=== PATIENT | male | born 1955 | race Caucasian/White ===

== ENCOUNTER 2017-08-09 11:28 | Inpatient (IN) | payer OTHER ==
[~2017-08-09 11:28] MED LIST: ROCURONIUM 50 MG INJ
[2017-08-09] MEDS ORDERED: DEXAMETHASONE 4 MG/ML 1 ML INJ (13:56)
[2017-08-09] MEDS ORDERED: ONDANSETRON 4 MG INJ (13:56)
[2017-08-09] MEDS ORDERED: PROPOFOL 20 ML (13:56)
[2017-08-09] MEDS ORDERED: MIDAZOLAM 1 MG/ML 2 ML INJ (13:56)
[2017-08-09] MEDS ORDERED: CEFAZOLIN 1 GM INJ (13:56)
[2017-08-09] MEDS ORDERED: NEOSTIGMINE 3 MG/3 ML SYRINGE (13:56)
[2017-08-09] MEDS ORDERED: GLYCOPYRROLATE 0.4 MG INJ (13:56)
[2017-08-09] MEDS ORDERED: ROCURONIUM 50 MG INJ (13:56)
[2017-08-09] MEDS ORDERED: NALOXONE (0.4 MG/ML) INJ IV (14:30)
[2017-08-09] MEDS ORDERED: NACL 0.9% 3 ML SYG IV (14:30)
[2017-08-09] MEDS ORDERED: hydrALAzine 20 MG INJ IV (15:30)
[2017-08-09] MEDS ORDERED: HYDROmorphONE (0.2 MG/ML) 10ML SYG IV (15:30)
[2017-08-09] MEDS ORDERED: TRIMETHOBENZAMIDE 100 MG/ML VIAL IM (15:30)
[2017-08-09] MEDS ORDERED: MEPERIDINE 25 MG INJ IV (15:30)
[2017-08-09] MEDS ORDERED: FENTAnyl 50 MCG/ML VIAL IV (15:30)
[2017-08-09] MEDS ORDERED: DIPHENHYDRAMINE 50 MG INJ IV (15:30)
[2017-08-09] MEDS ORDERED: OXYCODONE/ACETAMINOPHEN (5/325) TAB PO ×2 (15:30)
[2017-08-09] MEDS ORDERED: IPRATROPIUM (NEB) 0.5 MG/2.5 ML AMP HHN (15:30)
[2017-08-09] MEDS ORDERED: ALBUTEROL 0.083% (NEB) 2.5 MG/3 ML AMP HHN (15:30)
[2017-08-09] MEDS ORDERED: MIDAZOLAM 1 MG/ML 2 ML INJ IV (15:30)
[2017-08-09] MEDS ORDERED: ONDANSETRON 4 MG INJ IV (15:30)
[2017-08-09] MEDS ORDERED: EPHEDrine SULFATE 50 MG/5 ML SYG IV (15:30)
[2017-08-09] MEDS: HEPARIN 1000 UNITS/ML 10 ML INJ (15:35)
[2017-08-09] MEDS: CEFAZOLIN 1 GM INJ (15:35)
[2017-08-09] MEDS: GELATIN SIZE 100 SPONGE ×3 (15:36→16:28)
[2017-08-09] MEDS: THROMBIN 5000 UNIT VIAL ×4 (15:36→16:28)
[2017-08-09] MEDS ORDERED: PHENYLephrine (100 MCG/ML) 5ML SYG (16:17)
[2017-08-09] MEDS ORDERED: SUGAMMADEX SODIUM 200 MG/2 ML VIAL IV (17:16)
[2017-08-09] MEDS: LABETALOL HCL 20MG INJ IV (17:51)
[2017-08-09] MEDS: CEFAZOLIN 1 GM/50 ML (PMX) 50 ML IVPB (17:52)
[2017-08-09] MEDS: HYDROmorphONE (0.2 MG/ML) 10ML SYG IV ×2 (17:59→18:12)
[2017-08-09] MEDS: FENTAnyl 50 MCG/ML VIAL IV ×2 (18:00→18:12)
[2017-08-09] MEDS: HYDROmorphONE 0.2 MG/ML PCA IV (18:05)
[2017-08-09 18:11] LABS: ADD UMIC YES; UR ASCORBIC ACID NEGATIVE (NEGATIVE); UR BACTERIA FEW /HPF (NONE SEEN); UR BILIRUBIN (Dip) NEGATIVE (NEGATIVE); UR BLOOD (Dip) 2+ mg/dL (NEGATIVE); UR CLARITY SLIGHTLY CLOUDY (CLEAR); UR COLOR YELLOW (YELLOW); UR GLUCOSE (Dip) NEGATIVE (NEGATIVE); UR KETONES (Dip) NEGATIVE (NEGATIVE); UR LEUKOCYTE ESTERASE (Dip) NEGATIVE Leu/ul (NEGATIVE); UR MUCUS MODERATE /HPF (NONE SEEN); UR NITRITE (Dip) NEGATIVE (NEGATIVE); UR RBC 62 /HPF (0-5); UR SPECIFIC GRAVITY (Dip) 1.015 (1.003-1.030); UR TOTAL PROTEIN (Dip) 2+ mg/dl (NEGATIVE); UR UROBILINOGEN (Dip) NEGATIVE (NEGATIVE); UR WBC 8 /HPF (0-5)
[2017-08-10] MEDS: CEFAZOLIN 1 GM/50 ML (PMX) 50 ML IVPB ×3 (00:57→12:46)
[2017-08-10] MEDS: HYDROmorphONE 0.2 MG/ML PCA IV ×2 (01:40→14:31)
[2017-08-10 06:57] LABS: HEMATOCRIT 37.7 % (42.0-52.0); HEMOGLOBIN 12.5 g/dl (14.0-18.0)
[2017-08-10 07:38] LABS: ANION GAP 14 (8-16); BLOOD UREA NITROGEN 15 mg/dl (7-20); CALCIUM 8.4 mg/dl (8.4-10.2); CARBON DIOXIDE 27 mmol/L (21-31); CHLORIDE 107 mmol/L (97-110); CREATININE 0.85 mg/dl (0.61-1.24); GLUCOSE 171 mg/dl (70-220); POTASSIUM 4.3 mmol/L (3.5-5.1); SODIUM 144 mmol/L (135-144)
[2017-08-10] MEDS: BENAZEPRIL 20 MG TAB PO (12:00)
[2017-08-10] MEDS: ATENOLOL 25 MG TAB PO (12:00)
[2017-08-10 12:03] LABS: HEMOGLOBIN A1C 6.9 % (0-5.9)
[2017-08-10] MEDS ORDERED: DEXTROSE 50% 50 ML SYRINGE IV ×2 (14:00)
[2017-08-10] MEDS ORDERED: GLUCOSE GEL 15 GRAM TUBE BUCCAL (14:00)
[2017-08-10] MEDS ORDERED: GLUCAGON 1 MG INJ IM (14:00)
[2017-08-10] MEDS ORDERED: GLUCOSE GEL 15 GRAM TUBE PO ×2 (14:00)
[2017-08-10] MEDS: metFORMIN 500 MG TAB PO (17:17)
[2017-08-10] MEDS: ONDANSETRON 4 MG INJ IV (17:17)
[2017-08-10] MEDS: INSULIN ASPART [NOVOLOG] 3 ML PEN SC ×2 (17:55→21:00)
[2017-08-10] MEDS: TERAZOSIN 5 MG CAP PO (21:58)
[2017-08-11] MEDS: ACCU-CHEK XX (02:00)
[2017-08-11 07:49] LABS: ADD MAN DIFF? NO
[2017-08-11 07:53] LABS: BASOPHILS % 0.3 % (0.0-2.0); EOSINOPHILS % 0.1 % (0.0-7.0); HEMATOCRIT 34.4 % (42.0-52.0); HEMOGLOBIN 11.2 g/dl (14.0-18.0); LYMPHOCYTES # 1.4 10^3/ul (0.8-2.9); LYMPHOCYTES % 14.2 % (15.0-51.0); MEAN CORPUSCULAR HEMOGLOBIN 28.4 pg (29.0-33.0); MEAN CORPUSCULAR HGB CONC 32.6 g/dl (32.0-37.0); MEAN CORPUSCULAR VOLUME 87.3 fl (82.0-101.0); MEAN PLATELET VOLUME 10.6 fl (7.4-10.4); MONOCYTE # 1.2 10^3/ul (0.3-0.9); MONOCYTES % 11.8 % (0.0-11.0); NEUTROPHIL # 7.3 10^3/ul (1.6-7.5); NEUTROPHILS % 73.2 % (39.0-77.0); PLATELET COUNT 219 10^3/UL (140-415); RED BLOOD COUNT 3.94 10^6/ul (4.70-6.10); RED CELL DISTRIBUTION WIDTH 15.2 % (11.5-14.5)
[2017-08-11 07:53] LABS: WHITE BLOOD COUNT 9.9 10^3/ul (4.8-10.8)
[2017-08-11] MEDS: INSULIN ASPART [NOVOLOG] 3 ML PEN SC ×4 (07:55→20:34)
[2017-08-11 08:24] LABS: ANION GAP 15 (8-16); BLOOD UREA NITROGEN 21 mg/dl (7-20); CALCIUM 8.6 mg/dl (8.4-10.2); CARBON DIOXIDE 28 mmol/L (21-31); CHLORIDE 105 mmol/L (97-110); CREATININE 0.84 mg/dl (0.61-1.24); GLUCOSE 122 mg/dl (70-220); POTASSIUM 3.8 mmol/L (3.5-5.1); SODIUM 144 mmol/L (135-144)
[2017-08-11] MEDS: ATENOLOL 25 MG TAB PO (08:43)
[2017-08-11] MEDS: metFORMIN 500 MG TAB PO ×2 (08:43→17:42)
[2017-08-11] MEDS: AMLODIPINE 5 MG TAB PO (08:44)
[2017-08-11] MEDS: BENAZEPRIL 20 MG TAB PO (08:44)
[2017-08-11] MEDS ORDERED: glipiZIDE (XL) 2.5 MG TAB PO (09:00)
[2017-08-11] MEDS: HYDROmorphONE 0.2 MG/ML PCA IV (10:39)
[2017-08-11] MEDS: DOCUSATE SODIUM 100 MG CAP PO (20:31)
[2017-08-11] MEDS: TERAZOSIN 5 MG CAP PO (20:32)
[2017-08-11] MEDS: HYDROCODONE/APAP (5/325) TAB PO (20:33)
[2017-08-12] MEDS: ACCU-CHEK XX (02:00)
[2017-08-12 07:34] LABS: ADD MAN DIFF? NO
[2017-08-12 07:45] LABS: BASOPHIL # 0.1 10^3/ul (0.0-0.1); BASOPHILS % 0.6 % (0.0-2.0); EOSINOPHILS # 0.1 10^3/ul (0.0-0.5); EOSINOPHILS % 1.1 % (0.0-7.0); HEMATOCRIT 35.9 % (42.0-52.0); HEMOGLOBIN 11.7 g/dl (14.0-18.0); LYMPHOCYTES # 1.6 10^3/ul (0.8-2.9); LYMPHOCYTES % 18.3 % (15.0-51.0); MEAN CORPUSCULAR HEMOGLOBIN 28.3 pg (29.0-33.0); MEAN CORPUSCULAR HGB CONC 32.6 g/dl (32.0-37.0); MEAN CORPUSCULAR VOLUME 86.9 fl (82.0-101.0); MEAN PLATELET VOLUME 10.1 fl (7.4-10.4); MONOCYTE # 1.1 10^3/ul (0.3-0.9); MONOCYTES % 12.9 % (0.0-11.0); NEUTROPHIL # 5.8 10^3/ul (1.6-7.5); NEUTROPHILS % 66.5 % (39.0-77.0); PLATELET COUNT 216 10^3/UL (140-415); RED BLOOD COUNT 4.13 10^6/ul (4.70-6.10); RED CELL DISTRIBUTION WIDTH 14.7 % (11.5-14.5)
[2017-08-12 07:45] LABS: WHITE BLOOD COUNT 8.8 10^3/ul (4.8-10.8)
[2017-08-12 08:01] LABS: ANION GAP 14 (8-16); BLOOD UREA NITROGEN 17 mg/dl (7-20); CALCIUM 8.9 mg/dl (8.4-10.2); CARBON DIOXIDE 31 mmol/L (21-31); CHLORIDE 102 mmol/L (97-110); CREATININE 0.77 mg/dl (0.61-1.24); GLUCOSE 110 mg/dl (70-220); POTASSIUM 3.8 mmol/L (3.5-5.1); SODIUM 143 mmol/L (135-144)
[2017-08-12] MEDS: metFORMIN 500 MG TAB PO ×2 (08:17→17:50)
[2017-08-12] MEDS: DOCUSATE SODIUM 100 MG CAP PO ×2 (08:17→20:32)
[2017-08-12] MEDS: AMLODIPINE 5 MG TAB PO (08:17)
[2017-08-12] MEDS: BENAZEPRIL 20 MG TAB PO (08:17)
[2017-08-12] MEDS: ATENOLOL 25 MG TAB PO (08:18)
[2017-08-12] MEDS: INSULIN ASPART [NOVOLOG] 3 ML PEN SC ×4 (08:33→20:33)
[2017-08-12] MEDS: HYDROmorphONE 0.2 MG/ML PCA IV (10:59)
[2017-08-12] MEDS ORDERED: BISACODYL (EC) 5 MG TAB PO (16:00)
[2017-08-12] MEDS: ZOLPIDEM 5 MG TAB PO (20:32)
[2017-08-12] MEDS: HYDROCODONE/APAP (5/325) TAB PO (20:32)
[2017-08-12] MEDS: TERAZOSIN 5 MG CAP PO (20:33)
[2017-08-13] MEDS: ACCU-CHEK XX (02:00)
[2017-08-13] MEDS: HYDROCODONE/APAP (5/325) TAB PO ×4 (03:48→18:08)
[2017-08-13] MEDS: INSULIN ASPART [NOVOLOG] 3 ML PEN SC ×4 (07:55→21:00)
[2017-08-13] MEDS: DOCUSATE SODIUM 100 MG CAP PO ×2 (08:18→21:03)
[2017-08-13] MEDS: metFORMIN 500 MG TAB PO ×2 (08:18→17:15)
[2017-08-13] MEDS: ATENOLOL 25 MG TAB PO (08:21)
[2017-08-13] MEDS: BENAZEPRIL 20 MG TAB PO (08:22)
[2017-08-13] MEDS: AMLODIPINE 5 MG TAB PO (08:22)
[2017-08-13 08:32] LABS: ADD MAN DIFF? NO
[2017-08-13 08:40] LABS: WHITE BLOOD COUNT 7.7 10^3/ul (4.8-10.8)
[2017-08-13 08:40] LABS: BASOPHILS % 0.5 % (0.0-2.0); EOSINOPHILS # 0.2 10^3/ul (0.0-0.5); EOSINOPHILS % 2.3 % (0.0-7.0); HEMATOCRIT 36.1 % (42.0-52.0); HEMOGLOBIN 11.9 g/dl (14.0-18.0); LYMPHOCYTES # 1.3 10^3/ul (0.8-2.9); LYMPHOCYTES % 16.2 % (15.0-51.0); MEAN CORPUSCULAR HEMOGLOBIN 28.1 pg (29.0-33.0); MEAN CORPUSCULAR VOLUME 85.3 fl (82.0-101.0); MEAN PLATELET VOLUME 11.5 fl (7.4-10.4); MONOCYTE # 0.9 10^3/ul (0.3-0.9); NEUTROPHIL # 5.3 10^3/ul (1.6-7.5); NEUTROPHILS % 68.6 % (39.0-77.0); POSITIVE DIFF @See below; RED BLOOD COUNT 4.23 10^6/ul (4.70-6.10); RED CELL DISTRIBUTION WIDTH 14.3 % (11.5-14.5)
[2017-08-13 08:53] LABS: PLATELET COUNT 137 10^3/UL (140-415)
[2017-08-13 09:02] LABS: ANION GAP 14 (8-16); BLOOD UREA NITROGEN 14 mg/dl (7-20); CALCIUM 8.8 mg/dl (8.4-10.2); CARBON DIOXIDE 28 mmol/L (21-31); CHLORIDE 103 mmol/L (97-110); CREATININE 0.67 mg/dl (0.61-1.24); GLUCOSE 118 mg/dl (70-220); POTASSIUM 3.9 mmol/L (3.5-5.1); SODIUM 141 mmol/L (135-144)
[2017-08-13] MEDS: ZOLPIDEM 5 MG TAB PO (21:03)
[2017-08-13] MEDS: TERAZOSIN 5 MG CAP PO (21:04)
[2017-08-14] MEDS: HYDROCODONE/APAP (5/325) TAB PO ×5 (01:14→22:37)
[2017-08-14] MEDS: ACCU-CHEK XX (03:00)
[2017-08-14] MEDS: INSULIN ASPART [NOVOLOG] 3 ML PEN SC ×4 (07:46→20:35)
[2017-08-14 08:05] LABS: ADD MAN DIFF? NO
[2017-08-14 08:08] LABS: BASOPHILS % 0.5 % (0.0-2.0); EOSINOPHILS # 0.2 10^3/ul (0.0-0.5); EOSINOPHILS % 2.5 % (0.0-7.0); HEMATOCRIT 35.4 % (42.0-52.0); LYMPHOCYTES # 1.5 10^3/ul (0.8-2.9); LYMPHOCYTES % 17.7 % (15.0-51.0); MEAN CORPUSCULAR HEMOGLOBIN 28.8 pg (29.0-33.0); MEAN CORPUSCULAR HGB CONC 33.9 g/dl (32.0-37.0); MEAN CORPUSCULAR VOLUME 84.9 fl (82.0-101.0); MONOCYTE # 1.1 10^3/ul (0.3-0.9); NEUTROPHIL # 5.5 10^3/ul (1.6-7.5); NEUTROPHILS % 65.8 % (39.0-77.0); PLATELET COUNT 262 10^3/UL (140-415); RED BLOOD COUNT 4.17 10^6/ul (4.70-6.10); RED CELL DISTRIBUTION WIDTH 14.3 % (11.5-14.5)
[2017-08-14 08:08] LABS: WHITE BLOOD COUNT 8.4 10^3/ul (4.8-10.8)
[2017-08-14 08:24] LABS: ANION GAP 15 (8-16); BLOOD UREA NITROGEN 15 mg/dl (7-20); CALCIUM 9.1 mg/dl (8.4-10.2); CARBON DIOXIDE 32 mmol/L (21-31); CHLORIDE 101 mmol/L (97-110); CREATININE 0.89 mg/dl (0.61-1.24); GLUCOSE 113 mg/dl (70-220); POTASSIUM 3.9 mmol/L (3.5-5.1); SODIUM 144 mmol/L (135-144)
[2017-08-14] MEDS: metFORMIN 500 MG TAB PO ×2 (08:53→17:27)
[2017-08-14] MEDS: DOCUSATE SODIUM 100 MG CAP PO ×2 (08:53→20:34)
[2017-08-14] MEDS: AMLODIPINE 5 MG TAB PO (08:54)
[2017-08-14] MEDS: ATENOLOL 25 MG TAB PO (08:54)
[2017-08-14] MEDS: BENAZEPRIL 20 MG TAB PO (08:57)
[2017-08-14] MEDS: TERAZOSIN 5 MG CAP PO (20:34)
[2017-08-14] MEDS: ZOLPIDEM 5 MG TAB PO (20:34)
[2017-08-15] MEDS: ACCU-CHEK XX (02:00)
[2017-08-15] MEDS: INSULIN ASPART [NOVOLOG] 3 ML PEN SC ×4 (07:55→21:00)
[2017-08-15] MEDS: HYDROCODONE/APAP (5/325) TAB PO ×5 (07:59→22:19)
[2017-08-15] MEDS: metFORMIN 500 MG TAB PO ×2 (07:59→17:04)
[2017-08-15] MEDS: ATENOLOL 25 MG TAB PO (08:52)
[2017-08-15] MEDS: BENAZEPRIL 20 MG TAB PO (08:52)
[2017-08-15] MEDS: AMLODIPINE 5 MG TAB PO (08:52)
[2017-08-15] MEDS: DOCUSATE SODIUM 100 MG CAP PO ×2 (08:53→21:07)
[2017-08-15] MEDS: TERAZOSIN 5 MG CAP PO (21:07)
[2017-08-16] MEDS: ACCU-CHEK XX (01:38)
[2017-08-16 06:05] LABS: ADD MAN DIFF? NO
[2017-08-16 06:10] LABS: WHITE BLOOD COUNT 8.9 10^3/ul (4.8-10.8)
[2017-08-16 06:10] LABS: BASOPHILS % 0.5 % (0.0-2.0); EOSINOPHILS # 0.3 10^3/ul (0.0-0.5); EOSINOPHILS % 3.3 % (0.0-7.0); HEMATOCRIT 36.3 % (42.0-52.0); HEMOGLOBIN 12.2 g/dl (14.0-18.0); LYMPHOCYTES # 1.5 10^3/ul (0.8-2.9); MEAN CORPUSCULAR HEMOGLOBIN 28.2 pg (29.0-33.0); MEAN CORPUSCULAR HGB CONC 33.6 g/dl (32.0-37.0); MEAN PLATELET VOLUME 9.7 fl (7.4-10.4); MONOCYTE # 1.1 10^3/ul (0.3-0.9); MONOCYTES % 12.6 % (0.0-11.0); NEUTROPHIL # 5.9 10^3/ul (1.6-7.5); NEUTROPHILS % 66.1 % (39.0-77.0); PLATELET COUNT 282 10^3/UL (140-415); RED BLOOD COUNT 4.32 10^6/ul (4.70-6.10)
[2017-08-16] MEDS: HYDROCODONE/APAP (5/325) TAB PO ×3 (06:41→16:04)
[2017-08-16 06:51] LABS: ANION GAP 15 (8-16); BLOOD UREA NITROGEN 16 mg/dl (7-20); CALCIUM 8.9 mg/dl (8.4-10.2); CARBON DIOXIDE 29 mmol/L (21-31); CHLORIDE 104 mmol/L (97-110); CREATININE 0.81 mg/dl (0.61-1.24); GLUCOSE 103 mg/dl (70-220); POTASSIUM 3.6 mmol/L (3.5-5.1); SODIUM 144 mmol/L (135-144)
[2017-08-16] MEDS: ATENOLOL 25 MG TAB PO (08:03)
[2017-08-16] MEDS: AMLODIPINE 5 MG TAB PO (08:03)
[2017-08-16] MEDS: BENAZEPRIL 20 MG TAB PO (08:04)
[2017-08-16] MEDS: DOCUSATE SODIUM 100 MG CAP PO (08:04)
[2017-08-16] MEDS: metFORMIN 500 MG TAB PO (08:05)
[2017-08-16] MEDS: INSULIN ASPART [NOVOLOG] 3 ML PEN SC ×2 (08:10→11:42)
== END 2017-08-16 17:05 | disposition home or self-care (01) | DRG 460 ==
LOC: REC 11:28 → MS2 08-15 22:45 → TEL 21:00
PROVIDERS: Neurological Surgery
PROC: 0SG30A0 Fusion of Lumbosacral Joint with Interbody Fusion Device, Anterior Approach, Anterior Column, Open Approach (ICD-10-PCS; principal; 2017-08-09 13:30)
PROC: 0SG10A0 Fusion of 2 or more Lumbar Vertebral Joints with Interbody Fusion Device, Anterior Approach, Anterior Column, Open Approach (ICD-10-PCS; 2017-08-09 13:30)
PROC: 0SB20ZZ Excision of Lumbar Vertebral Disc, Open Approach (ICD-10-PCS; 2017-08-09 13:30)
PROC: 0SP304Z Removal of Internal Fixation Device from Lumbosacral Joint, Open Approach (ICD-10-PCS; 2017-08-09 13:30)
DX: T84.028A Dislocation of other internal joint prosthesis, initial encounter (principal); E11.8 Type 2 diabetes mellitus with unspecified complications; M51.17 Intervertebral disc disorders with radiculopathy, lumbosacral region; I10 Essential (primary) hypertension; Y83.8 Other surgical procedures as the cause of abnormal reaction of the patient, or of later complication, without mention of misadventure at the time of the procedure; Y92.89 Other specified places as the place of occurrence of the external cause; E11.9 Type 2 diabetes mellitus without complications; N40.0 Benign prostatic hyperplasia without lower urinary tract symptoms; M21.379 Foot drop, unspecified foot; R10.9 Unspecified abdominal pain; R11.0 Nausea
CPT/HCPCS: 72100; 72131; 80048; 81001; 82962; 83036; 85014; 85018; 85025; 86850; 86900; 86901; 86920; 87086; 88304; 97110; 97116; 97161; 97530

== ENCOUNTER 2017-12-02 13:23 | Inpatient (IN) | payer OTHER ==
[~2017-12-02 13:23] MED LIST changes: +CA CHLORIDE 10% 10 ML SYRINGE; +CEFAZOLIN 1 GM INJ; +DEXAMETHASONE 4 MG/ML 1 ML INJ; +ONDANSETRON 4 MG INJ; -ROCURONIUM 50 MG INJ
[2017-12-02 14:28] LABS: ADD MAN DIFF? NO
[2017-12-02 14:29] LABS: WHITE BLOOD COUNT 7.7 10^3/ul (4.8-10.8)
[2017-12-02 14:29] LABS: BASOPHIL # 0.1 10^3/ul (0.0-0.1); BASOPHILS % 0.6 % (0.0-2.0); EOSINOPHILS # 0.1 10^3/ul (0.0-0.5); EOSINOPHILS % 1.7 % (0.0-7.0); HEMATOCRIT 42.9 % (42.0-52.0); HEMOGLOBIN 13.7 g/dl (14.0-18.0); LYMPHOCYTES # 1.4 10^3/ul (0.8-2.9); LYMPHOCYTES % 17.7 % (15.0-51.0); MEAN CORPUSCULAR HEMOGLOBIN 26.6 pg (29.0-33.0); MEAN CORPUSCULAR HGB CONC 31.9 g/dl (32.0-37.0); MEAN CORPUSCULAR VOLUME 83.1 fl (82.0-101.0); MEAN PLATELET VOLUME 9.8 fl (7.4-10.4); MONOCYTE # 0.7 10^3/ul (0.3-0.9); MONOCYTES % 9.4 % (0.0-11.0); NEUTROPHIL # 5.4 10^3/ul (1.6-7.5); NEUTROPHILS % 70.2 % (39.0-77.0); PLATELET COUNT 298 10^3/UL (140-415); RED BLOOD COUNT 5.16 10^6/ul (4.70-6.10)
[2017-12-02 14:52] LABS: ALANINE AMINOTRANSFERASE 37 IU/L (13-69); ALBUMIN 4.2 g/dl (3.3-4.9); ALBUMIN/GLOBULIN RATIO 1.68; ALKALINE PHOSPHATASE 115 IU/L (42-121); ANION GAP 16 (8-16); ASPARTATE AMINO TRANSFERASE 23 IU/L (15-46); BILIRUBIN,INDIRECT 0.4 mg/dl (0-1.1); BILIRUBIN,TOTAL 0.4 mg/dl (0.2-1.3); BLOOD UREA NITROGEN 11 mg/dl (7-20); CARBON DIOXIDE 26 mmol/L (21-31); CHLORIDE 104 mmol/L (97-110); CREATININE 0.72 mg/dl (0.61-1.24); GLUCOSE 125 mg/dl (70-220); POTASSIUM 3.8 mmol/L (3.5-5.1); SODIUM 142 mmol/L (135-144); TOTAL PROTEIN 6.7 g/dl (6.1-8.1)
[2017-12-02 14:53] LABS: INR 1.07; PT RATIO 1.1
[2017-12-02 14:54] LABS: PARTIAL THROMBOPLASTIN TIME 26.6 Sec (25.0-35.0)
[2017-12-02] MEDS ORDERED: MIDAZOLAM 1 MG/ML 2 ML INJ (18:10)
[2017-12-02] MEDS ORDERED: PROPOFOL 20 ML (18:10)
[2017-12-02] MEDS ORDERED: METOCLOPRAMIDE 10 MG INJ (18:11)
[2017-12-02] MEDS ORDERED: SUCCINYLCHOLINE CHLORIDE 100 MG/5 ML SYG IV (18:11)
[2017-12-02] MEDS ORDERED: ROCURONIUM 50 MG INJ (18:11)
[2017-12-02] MEDS ORDERED: LIDOCAINE 2% (SDV) 5 ML INJ (18:11)
[2017-12-02] MEDS ORDERED: ROPIVACAINE 0.5 % 30 ML VIAL (19:11)
[2017-12-02] MEDS ORDERED: POLYMYXIN/BACITRACIN 1L IRRIG (19:12)
[2017-12-02] MEDS ORDERED: NACL 0.9% 3 ML SYG IV (19:30)
[2017-12-02] MEDS ORDERED: NALOXONE (0.4 MG/ML) INJ IV (19:30)
[2017-12-02] MEDS: CEFAZOLIN 1 GM/50 ML (PMX) 50 ML IVPB (19:30)
[2017-12-02] MEDS: DOCUSATE SODIUM 100 MG CAP PO (20:00)
[2017-12-02] MEDS ORDERED: FENTAnyl 50 MCG/ML VIAL (20:22)
[2017-12-02] MEDS ORDERED: LABETALOL HCL 20MG INJ (20:29)
[2017-12-02] MEDS ORDERED: hydrALAzine 20 MG INJ (20:45)
[2017-12-02] MEDS: HEPARIN 1000 UNITS/ML 10 ML INJ (21:05)
[2017-12-02] MEDS: GELATIN SIZE 100 SPONGE (21:05)
[2017-12-02] MEDS: CEFAZOLIN 1 GM INJ (21:05)
[2017-12-02] MEDS: THROMBIN 5000 UNIT VIAL (21:06)
[2017-12-02] MEDS ORDERED: THROMBIN 5000 UNIT VIAL (21:21)
[2017-12-02] MEDS ORDERED: ACETAMINOPHEN 1000MG/100ML IV 100 ML (23:07)
[2017-12-02] MEDS ORDERED: SUGAMMADEX SODIUM 200 MG/2 ML VIAL IV ×2 (23:09)
[2017-12-02] MEDS ORDERED: PROVENTIL HFA 6.7GM INHALER (23:09)
[2017-12-02] MEDS ORDERED: HYDROmorphONE 2 MG/ML SYG (23:18)
[2017-12-03] MEDS: HYDROmorphONE 1 MG/ML SYG IV (01:07)
[2017-12-03] MEDS: CEFAZOLIN 1 GM/50 ML (PMX) 50 ML IVPB ×3 (01:07→11:43)
[2017-12-03] MEDS: HYDROCODONE/APAP (5/325) TAB PO ×2 (02:35→20:59)
[2017-12-03] MEDS: HYDROmorphONE 0.2 MG/ML PCA IV ×2 (02:59→13:39)
[2017-12-03 05:43] LABS: HEMATOCRIT 41.3 % (42.0-52.0); HEMOGLOBIN 12.9 g/dl (14.0-18.0)
[2017-12-03 06:02] LABS: ANION GAP 17 (8-16); BLOOD UREA NITROGEN 14 mg/dl (7-20); CALCIUM 8.8 mg/dl (8.4-10.2); CARBON DIOXIDE 22 mmol/L (21-31); CHLORIDE 108 mmol/L (97-110); CREATININE 0.81 mg/dl (0.61-1.24); GLUCOSE 260 mg/dl (70-220); POTASSIUM 4.5 mmol/L (3.5-5.1); SODIUM 142 mmol/L (135-144)
[2017-12-03] MEDS ORDERED: GLUCOSE GEL 15 GRAM TUBE PO ×2 (07:00)
[2017-12-03] MEDS ORDERED: GLUCAGON 1 MG INJ IM (07:00)
[2017-12-03] MEDS ORDERED: DEXTROSE 50% 50 ML SYRINGE IV ×2 (07:00)
[2017-12-03] MEDS ORDERED: GLUCOSE GEL 15 GRAM TUBE BUCCAL (07:00)
[2017-12-03] MEDS: INSULIN ASPART [NOVOLOG] 3 ML PEN SC ×4 (08:07→21:00)
[2017-12-03] MEDS ORDERED: DICLOFENAC (EC) 75 MG TAB PO (09:30)
[2017-12-03] MEDS: DOCUSATE SODIUM 100 MG CAP PO ×2 (09:59→21:00)
[2017-12-03] MEDS: ATENOLOL 25 MG TAB PO (10:12)
[2017-12-03] MEDS: INSULIN GLARGINE [LANtus] 3 ML PEN SC (11:41)
[2017-12-03] MEDS: metFORMIN 500 MG TAB PO (17:31)
[2017-12-03] MEDS: TERAZOSIN 5 MG CAP PO (21:00)
[2017-12-04] MEDS: ACCUCHECK AT 2AM (Patients on SS coverage) XX (02:00)
[2017-12-04 05:48] LABS: ADD MAN DIFF? NO
[2017-12-04 05:54] LABS: WHITE BLOOD COUNT 12.3 10^3/ul (4.8-10.8)
[2017-12-04 05:54] LABS: BASOPHILS % 0.2 % (0.0-2.0); EOSINOPHILS % 0.2 % (0.0-7.0); HEMATOCRIT 34.9 % (42.0-52.0); HEMOGLOBIN 10.9 g/dl (14.0-18.0); LYMPHOCYTES # 1.2 10^3/ul (0.8-2.9); MEAN CORPUSCULAR HEMOGLOBIN 26.9 pg (29.0-33.0); MEAN CORPUSCULAR HGB CONC 31.2 g/dl (32.0-37.0); MEAN CORPUSCULAR VOLUME 86.2 fl (82.0-101.0); MEAN PLATELET VOLUME 10.3 fl (7.4-10.4); MONOCYTE # 1.4 10^3/ul (0.3-0.9); NEUTROPHIL # 9.6 10^3/ul (1.6-7.5); NEUTROPHILS % 78.3 % (39.0-77.0); PLATELET COUNT 220 10^3/UL (140-415); RED BLOOD COUNT 4.05 10^6/ul (4.70-6.10); RED CELL DISTRIBUTION WIDTH 14.6 % (11.5-14.5)
[2017-12-04 06:33] LABS: ANION GAP 15 (8-16); BLOOD UREA NITROGEN 32 mg/dl (7-20); CALCIUM 8.4 mg/dl (8.4-10.2); CARBON DIOXIDE 25 mmol/L (21-31); CHLORIDE 105 mmol/L (97-110); CREATININE 1.06 mg/dl (0.61-1.24); GLUCOSE 160 mg/dl (70-220); MAGNESIUM 1.9 mg/dl (1.7-2.5); PHOSPHORUS 4.1 mg/dl (2.5-4.9); POTASSIUM 4.5 mmol/L (3.5-5.1); SODIUM 140 mmol/L (135-144)
[2017-12-04] MEDS: HYDROmorphONE 0.2 MG/ML PCA IV (08:33)
[2017-12-04] MEDS: INSULIN GLARGINE [LANtus] 3 ML PEN SC (08:33)
[2017-12-04] MEDS: INSULIN ASPART [NOVOLOG] 3 ML PEN SC ×4 (08:34→21:00)
[2017-12-04] MEDS: BENAZEPRIL 20 MG TAB PO (08:42)
[2017-12-04] MEDS: metFORMIN 500 MG TAB PO ×2 (08:42→17:18)
[2017-12-04] MEDS: DOCUSATE SODIUM 100 MG CAP PO ×2 (08:42→21:14)
[2017-12-04] MEDS: ATENOLOL 25 MG TAB PO (08:42)
[2017-12-04] MEDS: ONDANSETRON 4 MG INJ IV (15:34)
[2017-12-04] MEDS: TERAZOSIN 5 MG CAP PO (21:14)
[2017-12-05] MEDS: ACCUCHECK AT 2AM (Patients on SS coverage) XX (02:00)
[2017-12-05] MEDS: HYDROmorphONE 0.2 MG/ML PCA IV ×2 (02:56→14:12)
[2017-12-05 04:49] LABS: ADD MAN DIFF? NO
[2017-12-05 04:53] LABS: BASOPHILS % 0.2 % (0.0-2.0); EOSINOPHILS # 0.1 10^3/ul (0.0-0.5); EOSINOPHILS % 0.7 % (0.0-7.0); HEMATOCRIT 31.2 % (42.0-52.0); HEMOGLOBIN 9.8 g/dl (14.0-18.0); LYMPHOCYTES # 1.3 10^3/ul (0.8-2.9); LYMPHOCYTES % 14.1 % (15.0-51.0); MEAN CORPUSCULAR HEMOGLOBIN 26.8 pg (29.0-33.0); MEAN CORPUSCULAR HGB CONC 31.4 g/dl (32.0-37.0); MEAN CORPUSCULAR VOLUME 85.2 fl (82.0-101.0); MEAN PLATELET VOLUME 10.1 fl (7.4-10.4); MONOCYTE # 1.1 10^3/ul (0.3-0.9); MONOCYTES % 12.2 % (0.0-11.0); NEUTROPHIL # 6.5 10^3/ul (1.6-7.5); NEUTROPHILS % 72.4 % (39.0-77.0); PLATELET COUNT 179 10^3/UL (140-415); RED BLOOD COUNT 3.66 10^6/ul (4.70-6.10); RED CELL DISTRIBUTION WIDTH 14.5 % (11.5-14.5)
[2017-12-05 05:28] LABS: ANION GAP 10 (8-16); BLOOD UREA NITROGEN 21 mg/dl (7-20); CALCIUM 8.2 mg/dl (8.4-10.2); CARBON DIOXIDE 28 mmol/L (21-31); CHLORIDE 106 mmol/L (97-110); CREATININE 0.82 mg/dl (0.61-1.24); GLUCOSE 129 mg/dl (70-220); POTASSIUM 4.1 mmol/L (3.5-5.1); SODIUM 140 mmol/L (135-144)
[2017-12-05] MEDS ORDERED: ALBUMIN HUMAN 5% 250 ML INJ (07:00)
[2017-12-05] MEDS: INSULIN ASPART [NOVOLOG] 3 ML PEN SC ×4 (07:35→20:20)
[2017-12-05] MEDS: metFORMIN 500 MG TAB PO ×2 (07:35→17:35)
[2017-12-05] MEDS: ATENOLOL 25 MG TAB PO (08:11)
[2017-12-05] MEDS: DOCUSATE SODIUM 100 MG CAP PO ×2 (08:11→20:18)
[2017-12-05] MEDS: BENAZEPRIL 20 MG TAB PO (08:11)
[2017-12-05] MEDS: INSULIN GLARGINE [LANtus] 3 ML PEN SC (08:17)
[2017-12-05 14:05] LABS: INR 1.09; PROTIME 14.2 Sec (11.9-14.9); PT RATIO 1.1
[2017-12-05] MEDS ORDERED: MEPERIDINE 25 MG INJ IV (15:00)
[2017-12-05] MEDS ORDERED: HYDROmorphONE 0.5 MG/0.5 ML SYG IV ×3 (15:00)
[2017-12-05] MEDS ORDERED: DIPHENHYDRAMINE 50 MG INJ IV (15:00)
[2017-12-05] MEDS ORDERED: LABETALOL HCL 20MG INJ IV (15:00)
[2017-12-05] MEDS ORDERED: ONDANSETRON 4 MG INJ IV (15:00)
[2017-12-05] MEDS ORDERED: FENTAnyl 50 MCG/ML VIAL IV ×3 (15:00)
[2017-12-05] MEDS ORDERED: EPHEDrine SULFATE 50 MG/5 ML SYG IV (15:00)
[2017-12-05] MEDS ORDERED: hydrALAzine 20 MG INJ IV (15:00)
[2017-12-05] MEDS ORDERED: METOCLOPRAMIDE 10 MG INJ IV (15:00)
[2017-12-05] MEDS ORDERED: PHENYLephrine (100 MCG/ML) 10ML SYG (15:05)
[2017-12-05] MEDS ORDERED: ROCURONIUM 50 MG INJ (15:05)
[2017-12-05] MEDS ORDERED: SUCCINYLCHOLINE CHLORIDE 100 MG/5 ML SYG IV (15:05)
[2017-12-05] MEDS ORDERED: CEFAZOLIN 1 GM INJ (15:05)
[2017-12-05] MEDS ORDERED: PROPOFOL 20 ML (15:05)
[2017-12-05] MEDS ORDERED: HYDROmorphONE 2 MG/ML SYG (15:05)
[2017-12-05] MEDS ORDERED: MIDAZOLAM 1 MG/ML 2 ML INJ (15:05)
[2017-12-05] MEDS: ROPIVACAINE 0.5 % 30 ML VIAL (16:48)
[2017-12-05] MEDS: THROMBIN 5000 UNIT VIAL (16:48)
[2017-12-05] MEDS: GELATIN SIZE 100 SPONGE (16:48)
[2017-12-05] MEDS ORDERED: POLYMYXIN/BACITRACIN 1L IRRIG (17:16)
[2017-12-05] MEDS: HETASTARCH 6% NACL 500 ML (17:36)
[2017-12-05] MEDS ORDERED: ACETAMINOPHEN 1000MG/100ML IV 100 ML (17:38)
[2017-12-05] MEDS ORDERED: METOCLOPRAMIDE 10 MG INJ (17:38)
[2017-12-05] MEDS ORDERED: ONDANSETRON 4 MG INJ (17:38)
[2017-12-05] MEDS ORDERED: SUGAMMADEX SODIUM 200 MG/2 ML VIAL IV (17:39)
[2017-12-05] MEDS ORDERED: DEXAMETHASONE 4 MG/ML 1 ML INJ (17:39)
[2017-12-05] MEDS: TERAZOSIN 5 MG CAP PO (20:18)
[2017-12-06] MEDS: ACCUCHECK AT 2AM (Patients on SS coverage) XX (02:02)
[2017-12-06 05:03] LABS: ADD MAN DIFF? NO
[2017-12-06 05:21] LABS: ABNORMAL IP MESSAGE 1; HEMATOCRIT 29.9 % (42.0-52.0); HEMOGLOBIN 9.3 g/dl (14.0-18.0); LYMPHOCYTES # 0.3 10^3/ul (0.8-2.9); LYMPHOCYTES % 4.3 % (15.0-51.0); MEAN CORPUSCULAR HEMOGLOBIN 26.8 pg (29.0-33.0); MEAN CORPUSCULAR HGB CONC 31.1 g/dl (32.0-37.0); MEAN CORPUSCULAR VOLUME 86.2 fl (82.0-101.0); MEAN PLATELET VOLUME 10.3 fl (7.4-10.4); MONOCYTE # 0.3 10^3/ul (0.3-0.9); MONOCYTES % 4.4 % (0.0-11.0); NEUTROPHILS % 90.9 % (39.0-77.0); PLATELET COUNT 191 10^3/UL (140-415); POSITIVE DIFF @See below; RED BLOOD COUNT 3.47 10^6/ul (4.70-6.10); RED CELL DISTRIBUTION WIDTH 14.1 % (11.5-14.5)
[2017-12-06 05:21] LABS: WHITE BLOOD COUNT 7.7 10^3/ul (4.8-10.8)
[2017-12-06 05:45] LABS: ANION GAP 15 (8-16); BLOOD UREA NITROGEN 16 mg/dl (7-20); CALCIUM 8.3 mg/dl (8.4-10.2); CARBON DIOXIDE 27 mmol/L (21-31); CHLORIDE 105 mmol/L (97-110); CREATININE 0.68 mg/dl (0.61-1.24); GLUCOSE 152 mg/dl (70-220); POTASSIUM 4.9 mmol/L (3.5-5.1); SODIUM 142 mmol/L (135-144)
[2017-12-06] MEDS: HYDROmorphONE 0.2 MG/ML PCA IV (06:10)
[2017-12-06] MEDS: ATENOLOL 25 MG TAB PO (08:19)
[2017-12-06] MEDS: BENAZEPRIL 20 MG TAB PO (08:19)
[2017-12-06] MEDS: DOCUSATE SODIUM 100 MG CAP PO ×2 (08:19→21:20)
[2017-12-06] MEDS: metFORMIN 500 MG TAB PO ×2 (08:20→16:57)
[2017-12-06] MEDS: INSULIN ASPART [NOVOLOG] 3 ML PEN SC ×4 (08:22→21:00)
[2017-12-06] MEDS: INSULIN GLARGINE [LANtus] 3 ML PEN SC (08:22)
[2017-12-06] MEDS: AL HYDROX/MG HYDROX/SIMETH 30 ML CUP PO (16:57)
[2017-12-06] MEDS: TERAZOSIN 5 MG CAP PO (21:22)
[2017-12-07] MEDS: HYDROmorphONE 0.2 MG/ML PCA IV (00:23)
[2017-12-07] MEDS: ACCUCHECK AT 2AM (Patients on SS coverage) XX (01:55)
[2017-12-07 05:10] LABS: ADD MAN DIFF? NO
[2017-12-07 05:18] LABS: BASOPHILS % 0.3 % (0.0-2.0); EOSINOPHILS % 0.5 % (0.0-7.0); HEMATOCRIT 29.4 % (42.0-52.0); HEMOGLOBIN 9.2 g/dl (14.0-18.0); LYMPHOCYTES # 1.2 10^3/ul (0.8-2.9); LYMPHOCYTES % 15.8 % (15.0-51.0); MEAN CORPUSCULAR HEMOGLOBIN 26.7 pg (29.0-33.0); MEAN CORPUSCULAR HGB CONC 31.3 g/dl (32.0-37.0); MEAN CORPUSCULAR VOLUME 85.2 fl (82.0-101.0); MEAN PLATELET VOLUME 10.2 fl (7.4-10.4); MONOCYTES % 13.3 % (0.0-11.0); NEUTROPHIL # 5.1 10^3/ul (1.6-7.5); NEUTROPHILS % 69.7 % (39.0-77.0); PLATELET COUNT 204 10^3/UL (140-415); RED BLOOD COUNT 3.45 10^6/ul (4.70-6.10); RED CELL DISTRIBUTION WIDTH 14.1 % (11.5-14.5)
[2017-12-07 05:18] LABS: WHITE BLOOD COUNT 7.4 10^3/ul (4.8-10.8)
[2017-12-07 05:43] LABS: ANION GAP 14 (8-16); BLOOD UREA NITROGEN 14 mg/dl (7-20); CALCIUM 8.2 mg/dl (8.4-10.2); CARBON DIOXIDE 28 mmol/L (21-31); CHLORIDE 103 mmol/L (97-110); CREATININE 0.63 mg/dl (0.61-1.24); GLUCOSE 114 mg/dl (70-220); POTASSIUM 3.6 mmol/L (3.5-5.1); SODIUM 141 mmol/L (135-144)
[2017-12-07] MEDS: INSULIN ASPART [NOVOLOG] 3 ML PEN SC ×4 (07:35→20:46)
[2017-12-07] MEDS: INSULIN GLARGINE [LANtus] 3 ML PEN SC (07:39)
[2017-12-07] MEDS: metFORMIN 500 MG TAB PO ×2 (07:42→08:26)
[2017-12-07] MEDS: ATENOLOL 25 MG TAB PO (08:27)
[2017-12-07] MEDS: DOCUSATE SODIUM 100 MG CAP PO ×2 (08:27→20:47)
[2017-12-07] MEDS: BENAZEPRIL 20 MG TAB PO (08:27)
[2017-12-07] MEDS: ONDANSETRON 4 MG INJ IV (15:11)
[2017-12-07] MEDS ORDERED: MAGNESIUM HYDROXIDE 30ML CUP PO (16:00)
[2017-12-07] MEDS: TERAZOSIN 5 MG CAP PO (20:47)
[2017-12-08] MEDS: ACCUCHECK AT 2AM (Patients on SS coverage) XX (02:00)
[2017-12-08 06:05] LABS: ADD MAN DIFF? NO
[2017-12-08 06:20] LABS: BASOPHILS % 0.3 % (0.0-2.0); EOSINOPHILS # 0.1 10^3/ul (0.0-0.5); HEMATOCRIT 31.2 % (42.0-52.0); HEMOGLOBIN 10.1 g/dl (14.0-18.0); LYMPHOCYTES % 14.3 % (15.0-51.0); MEAN CORPUSCULAR HGB CONC 32.4 g/dl (32.0-37.0); MEAN CORPUSCULAR VOLUME 83.4 fl (82.0-101.0); MEAN PLATELET VOLUME 10.4 fl (7.4-10.4); MONOCYTES % 14.1 % (0.0-11.0); NEUTROPHIL # 5.1 10^3/ul (1.6-7.5); NEUTROPHILS % 69.6 % (39.0-77.0); PLATELET COUNT 216 10^3/UL (140-415); RED BLOOD COUNT 3.74 10^6/ul (4.70-6.10); RED CELL DISTRIBUTION WIDTH 13.9 % (11.5-14.5)
[2017-12-08 06:20] LABS: WHITE BLOOD COUNT 7.3 10^3/ul (4.8-10.8)
[2017-12-08 06:37] LABS: ANION GAP 13 (8-16); BLOOD UREA NITROGEN 13 mg/dl (7-20); CALCIUM 8.5 mg/dl (8.4-10.2); CARBON DIOXIDE 30 mmol/L (21-31); CHLORIDE 99 mmol/L (97-110); CREATININE 0.69 mg/dl (0.61-1.24); GLUCOSE 125 mg/dl (70-220); POTASSIUM 3.3 mmol/L (3.5-5.1); SODIUM 139 mmol/L (135-144)
[2017-12-08] MEDS: INSULIN ASPART [NOVOLOG] 3 ML PEN SC ×4 (07:35→21:00)
[2017-12-08] MEDS: ONDANSETRON 4 MG INJ IV (08:26)
[2017-12-08] MEDS: BENAZEPRIL 20 MG TAB PO (09:14)
[2017-12-08] MEDS: ATENOLOL 25 MG TAB PO (09:14)
[2017-12-08] MEDS: metFORMIN 500 MG TAB PO ×2 (09:14→17:58)
[2017-12-08] MEDS: DOCUSATE SODIUM 100 MG CAP PO ×2 (09:14→21:50)
[2017-12-08] MEDS: INSULIN GLARGINE [LANtus] 3 ML PEN SC (09:16)
[2017-12-08] MEDS: POTASSIUM CHLORIDE (SR) 20 MEQ TAB PO (10:01)
[2017-12-08] MEDS: HYDROCODONE/APAP (5/325) TAB PO (10:02)
[2017-12-08] MEDS: HYDROCODONE/APAP (10/325) TAB PO (19:38)
[2017-12-08] MEDS: TERAZOSIN 5 MG CAP PO (21:50)
[2017-12-09] MEDS: ACCUCHECK AT 2AM (Patients on SS coverage) XX (02:00)
[2017-12-09] MEDS: HYDROCODONE/APAP (10/325) TAB PO ×4 (02:04→21:52)
[2017-12-09] MEDS: metFORMIN 500 MG TAB PO ×2 (07:48→17:23)
[2017-12-09] MEDS: ONDANSETRON 4 MG INJ IV (07:58)
[2017-12-09] MEDS: DOCUSATE SODIUM 100 MG CAP PO ×2 (08:02→21:47)
[2017-12-09] MEDS: ATENOLOL 25 MG TAB PO (08:03)
[2017-12-09] MEDS: INSULIN ASPART [NOVOLOG] 3 ML PEN SC ×4 (08:03→21:00)
[2017-12-09] MEDS: BENAZEPRIL 20 MG TAB PO (08:03)
[2017-12-09] MEDS: INSULIN GLARGINE [LANtus] 3 ML PEN SC (12:12)
[2017-12-09] MEDS: TERAZOSIN 5 MG CAP PO (21:50)
[2017-12-10] MEDS: ACCUCHECK AT 2AM (Patients on SS coverage) XX (02:00)
[2017-12-10] MEDS: HYDROCODONE/APAP (5/325) TAB PO (06:17)
[2017-12-10] MEDS: metFORMIN 500 MG TAB PO ×2 (07:45→17:38)
[2017-12-10] MEDS: INSULIN ASPART [NOVOLOG] 3 ML PEN SC ×4 (07:45→20:57)
[2017-12-10] MEDS: INSULIN GLARGINE [LANtus] 3 ML PEN SC (07:48)
[2017-12-10] MEDS: BENAZEPRIL 20 MG TAB PO (08:55)
[2017-12-10] MEDS: DOCUSATE SODIUM 100 MG CAP PO ×2 (08:55→20:57)
[2017-12-10] MEDS: ATENOLOL 25 MG TAB PO (08:56)
[2017-12-10] MEDS: HYDROCODONE/APAP (10/325) TAB PO ×2 (13:31→20:57)
[2017-12-10] MEDS: TERAZOSIN 5 MG CAP PO (20:57)
[2017-12-11] MEDS: HYDROCODONE/APAP (10/325) TAB PO ×4 (01:23→22:17)
[2017-12-11] MEDS: ACCUCHECK AT 2AM (Patients on SS coverage) XX (02:00)
[2017-12-11] MEDS: INSULIN ASPART [NOVOLOG] 3 ML PEN SC ×4 (08:00→21:00)
[2017-12-11] MEDS: INSULIN GLARGINE [LANtus] 3 ML PEN SC (08:17)
[2017-12-11] MEDS: DOCUSATE SODIUM 100 MG CAP PO ×2 (08:28→22:17)
[2017-12-11] MEDS: metFORMIN 500 MG TAB PO ×2 (08:28→17:27)
[2017-12-11] MEDS: BENAZEPRIL 20 MG TAB PO (08:59)
[2017-12-11] MEDS: ATENOLOL 25 MG TAB PO (09:00)
[2017-12-11] MEDS: TERAZOSIN 5 MG CAP PO (22:17)
[2017-12-12] MEDS: ACCUCHECK AT 2AM (Patients on SS coverage) XX (02:00)
[2017-12-12] MEDS: INSULIN ASPART [NOVOLOG] 3 ML PEN SC ×4 (07:43→21:00)
[2017-12-12] MEDS: INSULIN GLARGINE [LANtus] 3 ML PEN SC (07:57)
[2017-12-12] MEDS: HYDROCODONE/APAP (10/325) TAB PO ×3 (07:58→22:44)
[2017-12-12] MEDS: DOCUSATE SODIUM 100 MG CAP PO ×2 (08:03→21:19)
[2017-12-12] MEDS: BENAZEPRIL 20 MG TAB PO (08:03)
[2017-12-12] MEDS: metFORMIN 500 MG TAB PO ×2 (08:03→17:49)
[2017-12-12] MEDS: ATENOLOL 25 MG TAB PO (08:03)
[2017-12-12] MEDS: TERAZOSIN 5 MG CAP PO (21:19)
[2017-12-13] MEDS: ACCUCHECK AT 2AM (Patients on SS coverage) XX (01:51)
[2017-12-13 06:21] LABS: ADD MAN DIFF? NO
[2017-12-13 06:31] LABS: BASOPHILS % 0.3 % (0.0-2.0); EOSINOPHILS # 0.4 10^3/ul (0.0-0.5); EOSINOPHILS % 4.2 % (0.0-7.0); HEMATOCRIT 32.7 % (42.0-52.0); HEMOGLOBIN 10.3 g/dl (14.0-18.0); LYMPHOCYTES % 21.4 % (15.0-51.0); MEAN CORPUSCULAR HGB CONC 31.5 g/dl (32.0-37.0); MEAN CORPUSCULAR VOLUME 82.6 fl (82.0-101.0); MEAN PLATELET VOLUME 10.3 fl (7.4-10.4); MONOCYTE # 0.9 10^3/ul (0.3-0.9); MONOCYTES % 9.3 % (0.0-11.0); NEUTROPHILS % 64.4 % (39.0-77.0); PLATELET COUNT 283 10^3/UL (140-415); RED BLOOD COUNT 3.96 10^6/ul (4.70-6.10); RED CELL DISTRIBUTION WIDTH 14.3 % (11.5-14.5)
[2017-12-13 06:31] LABS: WHITE BLOOD COUNT 9.3 10^3/ul (4.8-10.8)
[2017-12-13 07:02] LABS: ANION GAP 9 (8-16); BLOOD UREA NITROGEN 13 mg/dl (7-20); CALCIUM 8.6 mg/dl (8.4-10.2); CARBON DIOXIDE 29 mmol/L (21-31); CHLORIDE 107 mmol/L (97-110); GLUCOSE 99 mg/dl (70-220); POTASSIUM 4.4 mmol/L (3.5-5.1); SODIUM 141 mmol/L (135-144)
[2017-12-13] MEDS: INSULIN ASPART [NOVOLOG] 3 ML PEN SC ×3 (08:03→17:15)
[2017-12-13] MEDS: INSULIN GLARGINE [LANtus] 3 ML PEN SC (08:07)
[2017-12-13] MEDS: DOCUSATE SODIUM 100 MG CAP PO (08:09)
[2017-12-13] MEDS: metFORMIN 500 MG TAB PO ×2 (08:10→17:15)
[2017-12-13] MEDS: ATENOLOL 25 MG TAB PO (08:10)
[2017-12-13] MEDS: BENAZEPRIL 20 MG TAB PO (08:11)
[2017-12-13] MEDS: HYDROCODONE/APAP (10/325) TAB PO (08:15)
[2017-12-13] MEDS: HYDROmorphONE 1 MG/ML SYG IV (12:01)
== END 2017-12-13 19:40 | disposition home health service (06) | DRG 460 ==
LOC: REC 13:23 → MS2 12-09 01:47 → ICU 23:52
PROC: 0SG10A0 Fusion of 2 or more Lumbar Vertebral Joints with Interbody Fusion Device, Anterior Approach, Anterior Column, Open Approach (ICD-10-PCS; principal; 2017-12-02 15:30)
PROC: 0SB20ZZ Excision of Lumbar Vertebral Disc, Open Approach (ICD-10-PCS; 2017-12-02 15:30)
PROC: 0SP004Z Removal of Internal Fixation Device from Lumbar Vertebral Joint, Open Approach (ICD-10-PCS; 2017-12-02 19:21)
PROC: 0SP304Z Removal of Internal Fixation Device from Lumbosacral Joint, Open Approach (ICD-10-PCS; 2017-12-02 19:21)
PROC: 0SH004Z Insertion of Internal Fixation Device into Lumbar Vertebral Joint, Open Approach (ICD-10-PCS; 2017-12-02 19:21)
PROC: 0SH304Z Insertion of Internal Fixation Device into Lumbosacral Joint, Open Approach (ICD-10-PCS; 2017-12-02 19:21)
DX: M51.16 Intervertebral disc disorders with radiculopathy, lumbar region (principal); M48.56XA Collapsed vertebra, not elsewhere classified, lumbar region, initial encounter for fracture; T84.84XA Pain due to internal orthopedic prosthetic devices, implants and grafts, initial encounter; E11.9 Type 2 diabetes mellitus without complications; Y83.2 Surgical operation with anastomosis, bypass or graft as the cause of abnormal reaction of the patient, or of later complication, without mention of misadventure at the time of the procedure; Y92.89 Other specified places as the place of occurrence of the external cause; I10 Essential (primary) hypertension; E66.9 Obesity, unspecified; N40.0 Benign prostatic hyperplasia without lower urinary tract symptoms; Z68.31 Body mass index [BMI] 31.0-31.9, adult; Z79.84 Long term (current) use of oral hypoglycemic drugs
CPT/HCPCS: 71045; 72110; 72114; 72131; 74018; 80048; 80053; 82962; 83735; 84100; 85014; 85018; 85025; 85610; 85730; 86850; 86900; 86901; 86920; 87081; 88300; 88304; 88311; 97110; 97116; 97163; 97165; 97530; 97535

== ENCOUNTER 2017-12-16 15:07 | Outpatient (CLI) | payer OTHER | END 2017-12-16 16:05 | disposition home or self-care (01) | LOC: DCC 15:07 | DX: M54.5 Low back pain (principal); E11.9 Type 2 diabetes mellitus without complications; I10 Essential (primary) hypertension; N40.0 Benign prostatic hyperplasia without lower urinary tract symptoms; G40.909 Epilepsy, unspecified, not intractable, without status epilepticus | CPT/HCPCS: G0463 ==

== ENCOUNTER 2017-12-30 14:57 | Outpatient (CLI) | payer OTHER | END 2017-12-30 16:07 | disposition home or self-care (01) | LOC: DCC 14:57 | DX: M54.5 Low back pain (principal); I10 Essential (primary) hypertension; E11.8 Type 2 diabetes mellitus with unspecified complications; N40.0 Benign prostatic hyperplasia without lower urinary tract symptoms; G40.909 Epilepsy, unspecified, not intractable, without status epilepticus; Z79.84 Long term (current) use of oral hypoglycemic drugs | CPT/HCPCS: G0463 ==